=== PATIENT | female | born 1995 | race Caucasian/White ===

== ENCOUNTER 2023-12-21 12:00 | Emergency (ER) | payer OTHER ==
[~2023-12-21] VITALS: Ht 139.7 cm; Wt 47.6 kg
[2023-12-21 12:07] VITALS: BP_SYST 128; PULSE 85; RESP 18; TEMP 98.3; O2SAT 98
[2023-12-21 13:01] LABS: CLARITY/URINE TURBID (CLEAR); COLOR,URINE YELLOW (YELLOW); GLUCOSE,URINE NEGATIVE (NEGATIVE); KETONES,URINE NEGATIVE (NEGATIVE); PROTEIN URINE 3+ (NEGATIVE)
[2023-12-21 13:02] LABS: BILIRUBIN,URINE NEGATIVE (NEGATIVE); BLOOD, URINE 3+ (NEGATIVE); LEUKOCYTE ESTERASE ,URINE 3+ (NEGATIVE); NITRITE, URINE POSITIVE (NEGATIVE); UROBILINOGEN,URINE 0.2 (0.2-1.0)
[2023-12-21 13:03] LABS: BACTERIA,URINE MODERATE /HPF (None Seen); RBC,URINE 20-50 /HPF (0-3); TRIPLE PHOSPHATE CRYSTAL,UR 0-10 /HPF (None Seen); WBC,URINE 20-50 /HPF (0-3)
[2023-12-21 13:53] LABS: BASOPHILS % (AUTO) 0.5 % (0.0-2.0); EOSINOPHILS # (AUTO) 0.1 K/uL (0.0-0.4); EOSINOPHILS % (AUTO) 0.6 % (0.0-4.0); HEMATOCRIT 24.6 % (36-48); HEMOGLOBIN 7.4 g/dL (12.0-16.0); LYMPHOCYTES # (AUTO) 1.2 K/uL (1.0-5.5); LYMPHOCYTES % (AUTO) 13.2 % (20.5-51.5); MEAN CORPUSCULAR HEMOGLOBIN 17 pg (27-31); MEAN CORPUSCULAR HGB CONC 30 % (32-36); MEAN CORPUSCULAR VOLUME 56 fL (79.0-98.0); MONOCYTES # (AUTO) 0.7 K/uL (0.0-1.0); MONOCYTES % (AUTO) 7.7 % (1.7-9.3); NEUTROPHILS # (AUTO) 7.2 K/uL (1.8-7.7); PLATELET COUNT (AUTO) 177 K/uL (130-430); RED CELL DISTRIBUTION WIDTH 18.2 % (9.0-15.0); WHITE BLOOD COUNT (AUTO) 9.2 K/uL (4.8-10.8)
[2023-12-21 14:12] LABS: ANISOCYTOSIS 1+; HYPOCHROMASIA 2+; OVALOCYTES FEW
[2023-12-21 14:15] LABS: ALBUMIN 3.5 g/dL (3.4-4.8); CALCIUM 8.1 mg/dL (8.4-11.0); CREATININE 0.71 mg/dL (0.55-1.30); POTASSIUM 3.7 mmol/L (3.5-5.1); TOTAL BILIRUBIN 0.4 mg/dL (0.0-1.0); TOTAL PROTEIN, SERUM 6.7 g/dL (6.4-8.3)
[2023-12-21] MEDS: KETOROLAC TROMETHAMINE 30 MG VIAL IM ONE (14:38)
[2023-12-21] MEDS: ONDANSETRON 4 MG ODT TAB PO ONE (14:39)
[2023-12-21] MEDS: cefTRIAXone 1 GM VIAL IM ONE (15:03)
[2023-12-21 15:59] VITALS: BP_SYST 106; PULSE 67; RESP 18; TEMP 98.3; O2SAT 98
[2023-12-21] MEDS ORDERED: IBUP-1969 PO (16:01)
[2023-12-21] MEDS ORDERED: CEPH-548 PO (16:01)
[2023-12-21] MEDS ORDERED: ONDA-8 TL (16:01)
== END 2023-12-21 16:00 | disposition home or self-care (01) ==
LOC: SED 12:00
DX: N12 Tubulo-interstitial nephritis, not specified as acute or chronic (principal); R10.9 Unspecified abdominal pain; Z88.5 Allergy status to narcotic agent; Z87.442 Personal history of urinary calculi; Z98.890 Other specified postprocedural states
CPT/HCPCS: 99285; 74176; 80053; 81001; 83690; 85025; 87086; 36415; 81025; 96372; Q0162; J0696; J1885; 81000; 81015